=== PATIENT | female | born 1935 | race Two or more races ===

== ENCOUNTER 2019-02-05 22:48 | Emergency (ER) | payer MEDICARE, MEDICAID ==
[~2019-02-05] VITALS: Ht 162.6 cm; Wt 54.4 kg
[2019-02-05] MEDS ORDERED: cloNIDine HCL 0.1 MG TAB ONE (23:03)
[2019-02-05] MEDS ORDERED: cloNIDine HCL 0.1 MG TAB PO ONE (23:15)
[2019-02-05 23:39] LABS: Basophils # (auto) 0.1 uL; Eosinophils # (auto) 0.1 uL; Hemoglobin 13.1 g/dL (12.2-16.2); Monocytes # (auto) 0.5 uL; Monocytes % (auto) 9.1 % (0.0-12.0); Nucleated Red Blood Cells % 0.1 %; Red Cell Distribution Width 15.5 % (11.8-14.3)
[2019-02-05 23:41] LABS: Basophils % (auto) 1.2 % (0.0-2.0); Hematocrit 38.9 % (36.0-46.0); Lymphocytes # (auto) 2.9 uL; Lymphocytes % (auto) 52.7 % (10.0-50.0); Mean Corpuscular Hemoglobin 35.1 pg (28.0-32.0); Mean Corpuscular Hgb Conc. 33.7 g/dL (32.0-36.0); Mean Corpuscular Volume 104.1 fL (80.0-100.0); Platelet Count (auto) 254 10^3/uL (140-450); Red Blood Cells 3.73 10^6/uL (4.0-5.20); White Blood Cell 5.4 10^3/uL (4.4-10.8)
[2019-02-05 23:51] LABS: Urine Bacteria NONE SEEN /hpf (None Seen); Urine Blood TRACE /uL (Negative); Urine Mucus FEW (None Seen); Urine Specific Gravity 1.009 (1.001-1.035); Urine WBC 233 /hpf (0 - 5); Urine WBC Clumps PRESENT /hpf (None Seen)
[2019-02-05 23:58] LABS: Albumin 4.4 g/dL (3.4-5.0); Anion Gap 7 (5-15); Blood Urea Nitrogen 11 mg/dL (7-18); Carbon Dioxide 26 mmol/L (21-32); Chloride 105 mmol/L (98-107); Glucose 94 mg/dL (74-106); Potassium 3.1 mmol/L (3.5-5.1); Sodium 138 mmol/L (136-145)
[2019-02-06] LABS: Alanine Aminotransferase 12 U/L (13-56); Aspartate Aminotransferase 19 U/L (15-37); BUN/Creatinine Ratio 12.2; GFR African American 77 mL/min; GFR Non-African American 64 mL/min
[2019-02-06 00:05] LABS: Alkaline Phosphatase 91 U/L (45-117); Bilirubin, Total 0.9 mg/dL (0.2-1.0); Total Protein 7.8 g/dL (6.4-8.2)
[2019-02-06] MEDS ORDERED: HYDROcodone-ACET 5/325MG TAB PO ONE ×2 (00:30→03:30)
[2019-02-06] MEDS ORDERED: POTASSIUM EFFERVESENT TAB 25 MEQ PO ONE (00:30)
[2019-02-06 02:43] VITALS: BP 107/64
[2019-02-06] MEDS ORDERED: cefTRIAXone 1GM/50ML D5W 50 ML IV ONE (03:30)
== END 2019-02-06 04:47 | disposition home or self-care (01) ==
LOC: ER 22:54
DX: M54.16 Radiculopathy, lumbar region (principal); N39.0 Urinary tract infection, site not specified; E07.9 Disorder of thyroid, unspecified
CPT/HCPCS: 36415; 72131; 80053; 81001; 84484; 85025; 93005; 96365; 99284; J0696

== ENCOUNTER 2019-06-20 17:43 | Emergency (ER) | payer MEDICARE, MEDICAID ==
[~2019-06-20] VITALS: Ht 165.1 cm; Wt 59.0 kg
[2019-06-20] MEDS ORDERED: traMADol HCL 50 MG TAB PO ONE (19:30)
[2019-06-20 20:47] VITALS: BP 145/68
== END 2019-06-20 21:55 | disposition home or self-care (01) ==
LOC: ER 17:46
DX: M48.54XA Collapsed vertebra, not elsewhere classified, thoracic region, initial encounter for fracture (principal); E07.9 Disorder of thyroid, unspecified
CPT/HCPCS: 72131